=== PATIENT | female | born 1965 | race Caucasian/White ===

== ENCOUNTER 2019-11-11 11:15 | Emergency (ER) | payer OTHER ==
[~2019-11-11] VITALS: Ht 157.5 cm; Wt 105.7 kg
[2019-11-11] MEDS ORDERED: COZAAR100 MG (11:28)
[2019-11-11] MEDS ORDERED: MICROZIDE12.5 MG PO (16:08)
== END 2019-11-11 16:13 | disposition home or self-care (01) ==
LOC: ER 11:15 → EDBD 11:59 → ER 16:13
DX: I10 Essential (primary) hypertension (principal)